=== PATIENT | female | born 1955 | race Hispanic/Latino ===

== ENCOUNTER 2016-10-24 13:14 | Outpatient (CLI) | payer OTHER ==
[2016-10-24] MEDS ORDERED: PROVENTIL IH ONE (13:25)
== END 2016-10-24 13:15 | disposition home or self-care (01) ==
LOC: PF 13:14
PROVIDERS: ATTEND Internal Medicine
DX: Z02.71 Encounter for disability determination (principal); J44.9 Chronic obstructive pulmonary disease, unspecified
CPT/HCPCS: 94060; 94640

== ENCOUNTER 2016-11-05 09:30 | Emergency (ER) | payer SELFPAY ==
[2016-11-05 09:50] VITALS: BP 137/79
[2016-11-05] MEDS ORDERED: DUONEB 0.5 MG-3 MG/3 ML SOLN IH ONE ×2 (10:12→10:55)
--- NOTE | 2016-11-05 10:35 | Emergency Department Report ---
- General Chief Complaint: Upper Respiratory Infection Stated Complaint: COUGHING/WHEEZING/SOB/SPITTING UP BLOOD Time Seen by Provider: 11/05/16 09:59 Source: patient Mode of arrival: Ambulatory Limitations: No Limitations - History of Present Illness Initial Comments: 61-year-old female past medical history emphysema COPD smoker presents with complaint of approximately 5 days of increased cough and increased sputum production and chest congestion. On exam patient awake alert and oriented 3 not in acute distress no audible stridor wheezing with visible dyspnea. Patient states she has had subjective fever and chills with increased sputum production in the last several days. Denies chest pain chest pressure or palpitations, states symptoms are very similar prior episodes of COPD exacerbations. Has been using her nebulizer at home with minimal relief of her congestion. MD Complaint: cough Onset/Timin -: days(s) Severity: moderate Quality: other Associated Symptoms: chills, cough, shortness of breath - Related Data Previous Rx's Medication Instructions Recorded Last Taken Type ALBUTEROL NEB's [Proventil 0.083% 2.5 mg IH TID PRN #1 box 11/05/16 Unknown Rx NEBS] Azithromycin [Zithromax TAB] 250 mg PO QDAY #4 tablet 11/05/16 Unknown Rx predniSONE [Deltasone] 40 mg PO QDAY #10 tab 11/05/16 Unknown Rx Allergies Allergy/AdvReac Type Severity Reaction Status Date / Time amoxicillin Allergy Shortness Verified 11/05/16 09:46 of Breath ED Review of Systems ROS: Stated complaint: COUGHING/WHEEZING/SOB/SPITTING UP BLOOD Other details as noted in HPI Constitutional: denies: chills, fever Eyes: denies: eye pain, eye discharge, vision change ENT: denies: ear pain, throat pain Respiratory: cough. denies: shortness of breath, wheezing Cardiovascular: other (persistent coughing). denies: chest pain, palpitations Endocrine: no symptoms reported Gastrointestinal: denies: abdominal pain, nausea, diarrhea Genitourinary: denies: urgency, dysuria, discharge Musculoskeletal: denies: back pain, joint swelling, arthralgia Skin: denies: rash, lesions Neurological: denies: headache, weakness, paresthesias Psychiatric: denies: anxiety, depression Hematological/Lymphatic: denies: easy bleeding, easy bruising ED Past Medical Hx - Past Medical History Hx Diabetes: ("PREDIABETIC") Hx Asthma: Yes Hx COPD: Yes - Surgical History Additional Surgical History: LAPROSCOPY - Social History Smoking Status: Former Smoker Substance Use Type: None - Medications Home Medications: Home Medications Medication Instructions Recorded Confirmed Last Taken Type ALBUTEROL NEB's [Proventil 0.083% 2.5 mg IH TID PRN #1 box 11/05/16 Unknown Rx NEBS] Azithromycin [Zithromax TAB] 250 mg PO QDAY #4 tablet 11/05/16 Unknown Rx predniSONE [Deltasone] 40 mg PO QDAY #10 tab 11/05/16 Unknown Rx ED Physical Exam - General Limitations: No Limitations General appearance: alert, in no apparent distress - Head Head exam: Present: atraumatic, normocephalic - Eye Eye exam: Present: normal appearance, PERRL, EOMI - ENT ENT exam: Present: mucous membranes moist - Neck Neck exam: Present: normal inspection - Respiratory Respiratory exam: Present: wheezes, rhonchi (minro rhonchi right lung field). Absent: respiratory distress - Cardiovascular Cardiovascular Exam: Present: regular rate, normal rhythm. Absent: systolic murmur, diastolic murmur, rubs, gallop - GI/Abdominal GI/Abdominal exam: Present: soft, normal bowel sounds - Extremities Exam Extremities exam: Present: normal inspection - Back Exam Back exam: Present: normal inspection - Neurological Exam Neurological exam: Present: alert, oriented X3 - Psychiatric Psychiatric exam: Present: normal affect, normal mood - Skin Skin exam: Present: warm, dry, intact, normal color. Absent: rash ED Course Vital Signs 11/05/16 11/05/16 11/05/16 09:46 10:40 10:50 Temperature 98.4 F Pulse Rate 89 Pulse Rate [ 80 80 Anterior] Pulse Rate [ 78 82 Posterior] Respiratory 20 Rate Respiratory 20 20 Rate [Anterior] Respiratory 20 20 Rate [Posterior ] Blood Pressure 137/79 O2 Sat by Pulse 98 Oximetry 11/05/16 11/05/16 11:20 11:46 Temperature Pulse Rate Pulse Rate [ 82 82 Anterior] Pulse Rate [ 80 84 Posterior] Respiratory Rate Respiratory 20 18 Rate [Anterior] Respiratory 78 H 20 Rate [Posterior ] Blood Pressure O2 Sat by Pulse Oximetry ED Medical Decision Making - Lab Data Result diagrams: 11/05/16 10:19 11/05/16 10:19 - Medical Decision Making A/P: Mild COPD exacerbation 1-azithromycin Z-Lazarus, prednisone five-day course 40 mg daily, 2-chest x-ray negative influenza swab negative CBC and CMP within normal limits 3-patient to follow up with her primary care doctor this week 4-patient states she clinically feels better is able to ambulate w/out sig SOB, O2 sat above 98% . I gave the patient strict instructions to return to the ED if she experiences worsening cough shortness of breath dyspnea on exertion or dyspnea at rest 5- patient states she is out of her albuterol nebulizer vials we'll give her refill 6- case discussed with Dr. Horowitz before discharge Critical care attestation.: If time is entered above; I have spent that time in minutes in the direct care of this critically ill patient, excluding procedure time. ED Disposition Clinical Impression: COPD exacerbation Disposition: DISCHARGED TO HOME OR SELFCARE Is pt being admited?: No Does the pt Need Aspirin: No Condition: Stable Instructions: Chronic Obstructive Pulmonary Disease (ED) Prescriptions: ALBUTEROL NEB's [Proventil 0.083% NEBS] 2.5 mg IH TID PRN #1 box PRN Reason: Wheezing Azithromycin [Zithromax TAB] 250 mg PO QDAY #4 tablet predniSONE [Deltasone] 40 mg PO QDAY #10 tab Referrals: PRIMARY CAREMD [Primary Care Provider] - 3-5 Days ANNA CARVER MD [Staff Physician] - 3-5 Days Time of Disposition: 12:06
[2016-11-05 10:47] LABS: Basophils % (Auto) 0.6 % (0.0-1.8); Eosinophils % (Auto) 4.3 % (0.0-4.3); Hematocrit 45.3 % (30.3-42.9); Hemoglobin 14.8 gm/dl (10.1-14.3); Mean Corpuscular HGB Conc 33 % (30-34); Mean Corpuscular Hemoglobin 31 pg (28-32); Mean Corpuscular Volume 94 fl (79-97); Platelet Count 176 K/mm3 (140-440); Red Blood Count 4.81 M/mm3 (3.65-5.03); Red Cell Distribution Width 13.7 % (13.2-15.2); White Blood Count 7.6 K/mm3 (4.5-11.0)
[2016-11-05 10:48] LABS: Anion Gap 18 mmol/L; BUN/Creatinine Ratio 11.66; Blood Urea Nitrogen 7 mg/dL (7-17); Calcium 8.9 mg/dL (8.4-10.2); Carbon Dioxide 25 mmol/L (22-30); Chloride 100.6 mmol/L (98-107); Glucose 95 mg/dL (65-100); Potassium 4.5 mmol/L (3.6-5.0); Sodium 139 mmol/L (137-145)
[2016-11-05] MEDS ORDERED: ZITHROMAX PO ONE (10:54)
[2016-11-05] MEDS ORDERED: DELTASONE PO ONE (10:54)
--- NOTE | 2016-11-05 10:58 | XRay Report ---
ROUTINE CHEST, TWO VIEWS: HISTORY: Fever, chills. The trachea, heart, mediastinal contour, lung dietrich and bony thorax are unremarkable. IMPRESSION: Unremarkable chest x-ray.
== END 2016-11-05 12:40 | disposition home or self-care (01) ==
LOC: ED 09:30
DX: J44.1 Chronic obstructive pulmonary disease with (acute) exacerbation (principal); J45.909 Unspecified asthma, uncomplicated; Z87.891 Personal history of nicotine dependence
CPT/HCPCS: 36415; 71020; 80048; 82805; 85025; 87400; 94640; 99284; J7512